=== PATIENT | male | born 1975 | race Two or more races ===

== ENCOUNTER 2017-01-20 20:42 | Emergency (ER) | payer SELFPAY ==
[~2017-01-20] VITALS: Ht 177.8 cm; Wt 86.2 kg
[2017-01-20 22:30] VITALS: BP 154/105
[2017-01-20] MEDS ORDERED: TETANUS-DIPTH-ACEL PERTUSSIS 0.5ML SYRG IM ONE (23:15)
== END 2017-01-20 23:44 | disposition home or self-care (01) ==
LOC: ER 20:48
DX: S61.412A Laceration without foreign body of left hand, initial encounter (principal); F17.210 Nicotine dependence, cigarettes, uncomplicated; W26.0XXA Contact with knife, initial encounter; Y93.89 Activity, other specified; Y92.89 Other specified places as the place of occurrence of the external cause; Y99.0 Civilian activity done for income or pay
CPT/HCPCS: 12002; 90471; 90715

== ENCOUNTER 2017-01-27 10:22 | Emergency (ER) | payer OTHER ==
[~2017-01-27] VITALS: Ht 180.3 cm; Wt 83.9 kg
[2017-01-27 11:37] VITALS: BP 152/80
== END 2017-01-27 12:01 | disposition home or self-care (01) ==
LOC: ER 10:22
DX: S61.432D Puncture wound without foreign body of left hand, subsequent encounter (principal); F17.210 Nicotine dependence, cigarettes, uncomplicated; X58.XXXD Exposure to other specified factors, subsequent encounter